=== PATIENT | female | born 1980 ===

== ENCOUNTER 2016-06-25 18:32 | Emergency (ER) | payer OTHER, MEDICAID ==
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
[2016-06-25 19:19] VITALS: BP 126/61; PULSE 98; RESP 16; TEMP 98.6; O2SAT 100; BMI 26.6
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
== END 2016-06-25 20:47 | disposition home or self-care (01) ==
LOC: H.ER 18:32
DX: R10.30 Lower abdominal pain, unspecified (principal); V43.52XA Car driver injured in collision with other type car in traffic accident, initial encounter; Y92.410 Unspecified street and highway as the place of occurrence of the external cause; Z3A.11 11 weeks gestation of pregnancy; M54.5 Low back pain; F31.9 Bipolar disorder, unspecified; F41.9 Anxiety disorder, unspecified

== ENCOUNTER 2016-07-23 07:57 | Emergency (ER) | payer MEDICAID, OTHER ==
--- NOTE | 2016-07-23 08:30 | ED PDOC ---
HPI: Abdomen Time Seen by Provider: 07/23/16 08:09 Chief Complaint (Nursing): Abdominal Pain Chief Complaint (Provider): Abdominal Pain History Per: Patient History/Exam Limitations: no limitations Onset/Duration Of Symptoms: Days (x2 days) Current Symptoms Are (Timing): Still Present Additional Complaint(s): 35 y/o female presents to the emergency department with a complaint of a left lower quadrant pain that radiates to the back since yesterday, 07/22/2016. Denies nausea, vomiting, diarrhea, dysuria, and vaginal bleeding. Patient is approximately 14 weeks with twins. Past Medical History Reviewed: Historical Data, Nursing Documentation, Vital Signs Vital Signs: Last Vital Signs Temp 98.5 F 07/23/16 08:05 Pulse 88 07/23/16 08:05 Resp 18 07/23/16 08:05 BP 122/58 L 07/23/16 08:05 Pulse Ox 100 07/23/16 08:33 - Medical History PMH: Anxiety, Arthritis, Bipolar Disorder, Depression Denies: Alzheimer's Disease, Diabetes, Hepatitis, HIV, HTN, Kidney Stones, Chronic Kidney Disease, Seizures, Sexually Transmitted Disease - Surgical History Surgical History: No Surg Hx - Family History Family History: States: Unknown Family Hx - Social History Current smoker - smoking cessation education provided: No Alcohol: None Drugs: Denies - Immunization History Hx Tetanus Toxoid Vaccination: Yes (9 yrs ago) Hx Influenza Vaccination: No Hx Pneumococcal Vaccination: No - Home Medications Home Medications: Ambulatory Orders Medication Instructions Recorded Loratadine [Claritin] 10 mg PO DAILY 06/25/16 - Allergies Allergies/Adverse Reactions: Allergies Allergy/AdvReac Type Severity Reaction Status Date / Time milk Allergy URTICARIA Verified 07/23/16 08:11 wheat Allergy DIARRHEA Verified 07/23/16 08:11 rice Allergy SWELLING Uncoded 02/18/16 14:05 Review of Systems ROS Statement: Except As Marked, All Systems Reviewed And Found Negative Gastrointestinal: Positive for: Abdominal Pain (Left lower quadrant). Negative for: Nausea, Vomiting, Diarrhea Genitourinary Female: Negative for: Dysuria, Vaginal Bleeding Musculoskeletal: Positive for: Back Pain Physical Exam - Reviewed Nursing Documentation Reviewed: Yes Vital Signs Reviewed: Yes - Physical Exam Appears: Positive for: Well, Non-toxic, No Acute Distress Head Exam: Positive for: ATRAUMATIC, NORMOCEPHALIC Skin: Positive for: Normal Color, Warm, Dry Cardiovascular/Chest: Positive for: Regular Rate, Rhythm. Negative for: Murmur Respiratory: Positive for: Normal Breath Sounds. Negative for: Accessory Muscle Use, Respiratory Distress Gastrointestinal/Abdominal: Positive for: Normal Exam, Soft. Negative for: Tenderness Back: Negative for: L CVA Tenderness, R CVA Tenderness Neurologic/Psych: Positive for: Alert, Oriented - Laboratory Results Result Diagrams: 07/23/16 09:00 07/23/16 09:00 - ECG O2 Sat by Pulse Oximetry: 100 (RA) Pulse Ox Interpretation: Normal Medical Decision Making Medical Decision Making: Time: 8:09 Initial impression: Abdominal Pain Initial plan: --Type and Screen Stat --Beta-HCG, Quantitative --COMP Metabolic Panel --CBC w/ differential --OB , Limited US --Revaluation Scribe Attestation: Documented by Meghan Chavez, acting as a scribe for Wesley Beck MD. Provider Scribe Attestation: All medical record entries made by the Scribe were at my direction and personally dictated by me. I have reviewed the chart and agree that the record accurately reflects my personal performance of the history, physical exam, medical decision making, and the department course for this patient. I have also personally directed, reviewed, and agree with the discharge instructions and disposition. Disposition - Clinical Impression Clinical Impression: Abdominal pain during - Patient ED Disposition Is Patient to be Admitted: No Counseled Patient/Family Regarding: Studies Performed, Diagnosis, Need For Followup - Disposition [facility]errals[facility] Disposition: Routine/Home Disposition Time: 10:21 Condition: FAIR Instructions: Abdominal Pain in (ED)
[2016-07-23 08:43] VITALS: TEMP 98.5; BMI 27.2
[2016-07-23 09:19] LABS: BASO % 0.2 % (0.0-2.0); EOS % 0.5 % (0.0-4.0); HEMATOCRIT 33.3 % (34.0-47.0); LYMPH # 1.4 K/uL (1.0-4.3); LYMPH % 22.6 % (20.0-40.0); MEAN CELL VOLUME 95.5 fl (81.0-99.0); MEAN CORPUSCULAR HEMOGLOBIN 31.8 pg (27.0-31.0); MEAN CORPUSCULAR HGB CONC 33.3 g/dL (33.0-37.0); MEAN PLATELET VOLUME 8.3 fl (7.2-11.7); MONO # 0.5 K/uL (0.0-0.8); MONO % 8.7 % (0.0-10.0); NEUT # 4.1 K/uL (1.8-7.0); NRBC % 0.1 % (0.0-0.0); RED CELL DISTRIBUTION WIDTH 13.2 % (11.5-14.5)
[2016-07-23 09:38] LABS: ALB/GLOB RATIO 1.2 (1.0-2.1); ALKALINE PHOSPHATASE 36 U/L (38-126); ALT/SGPT 22 U/L (9-52); AST/SGOT 20 U/L (14-36); BILIRUBIN,TOTAL 0.3 mg/dl (0.2-1.3); BLOOD UREA NITROGEN 9 mg/dl (7-17); CALCIUM 8.9 mg/dL (8.4-10.2); CARBON DIOXIDE 22 mmol/L (22-30); CHLORIDE 103 mmol/L (98-107); GFR AFRICAN-AMERICAN > 60; GLUCOSE,RANDOM 79 mg/dL (65-105); POTASSIUM 3.4 MMOL/L (3.6-5.0); SODIUM 134 mmol/l (132-148); TOTAL PROTEIN 6.5 G/DL (6.3-8.2)
--- NOTE | 2016-07-23 10:25 | US ---
OB , limited Technique: Both transabdominal and endovaginal imaging was performed. Comparison: Ob transvaginal ultrasound performed 06/25/16 Findings: This is a twin gestation. Fetus A: Fetus has a composite sonographic age of 15 weeks 2 days. This calculation is based on the biparietal diameter, head circumference, abdominal circumference, and femur length. Transverse presentation. There is heart motion which measured 138 BPM. Posterior placenta. Fetus B: Fetus has a composite sonographic age of 15 weeks 4 days. This calculation is based on the biparietal diameter, head circumference, abdominal circumference, and femur length. Breech presentation. There is heart motion which measured 151 BPM. Anterior placenta. The ovaries are not visualized. Cervix length measures approximately 3.9 cm. Impression: Fetus A: Fetus has a composite sonographic age of 15 weeks 2 days. There is heart motion which measured 138 BPM. Transverse presentation. Fetus B: Fetus has a composite sonographic age of 15 weeks 4 days. There is heart motion which measured 151 BPM. Breech presentation. Advise an anomaly screen at 16-18 weeks gestational age.
[2016-07-23 10:31] VITALS: BP 96/50; PULSE 74; RESP 16; O2SAT 99
== END 2016-07-23 10:35 | disposition home or self-care (01) ==
LOC: H.ER 07:57
DX: O26.899 Other specified pregnancy related conditions, unspecified trimester (principal); F31.9 Bipolar disorder, unspecified; F41.9 Anxiety disorder, unspecified

== ENCOUNTER 2016-10-05 07:47 | Emergency (ER) | payer MEDICAID, OTHER ==
[2016-10-05 08:41] VITALS: BMI 29.7
[2016-10-05] MEDS: Lactated Ringer's 1,000 ML IV SCH ×2 (08:45→09:45)
[2016-10-05 09:56] LABS: HEMATOCRIT 33.8 % (34.0-47.0); MEAN CELL VOLUME 97.2 fl (81.0-99.0); MEAN CORPUSCULAR HEMOGLOBIN 32.9 pg (27.0-31.0); MEAN CORPUSCULAR HGB CONC 33.8 g/dL (33.0-37.0); RED CELL DISTRIBUTION WIDTH 13.7 % (11.5-14.5); WHITE BLOOD COUNT 5.5 K/uL (4.8-10.8)
[2016-10-05 10:20] LABS: ALB/GLOB RATIO 1.2 (1.0-2.1); ALKALINE PHOSPHATASE 112 U/L (38-126); ALT/SGPT 36 U/L (9-52); AST/SGOT 36 U/L (14-36); BILIRUBIN,TOTAL 0.4 mg/dl (0.2-1.3); BLOOD UREA NITROGEN 8 mg/dl (7-17); CALCIUM 9.3 mg/dL (8.4-10.2); CARBON DIOXIDE 23 mmol/L (22-30); CHLORIDE 104 mmol/L (98-107); GFR AFRICAN-AMERICAN > 60; GLUCOSE,RANDOM 87 mg/dL (65-105); POTASSIUM 4.1 MMOL/L (3.6-5.0); SODIUM 135 mmol/l (132-148); TOTAL PROTEIN 6.9 G/DL (6.3-8.2)
[2016-10-05 10:38] LABS: RBC URINE 3 /hpf (0-3); URINE BACTERIA RARE (<OCC); URINE BILIRUBIN NEGATIVE (NEGATIVE); URINE BLOOD NEGATIVE (NEGATIVE); URINE COLOR YELLOW (YELLOW); URINE GLUCOSE (UA) NEG (Normal); URINE KETONE 20 mg/dL (NEGATIVE); URINE LEUKOCYTE ESTERASE NEG Leu/uL (Negative); URINE PROTEIN NEGATIVE (NEGATIVE); URINE UROBILINOGEN 0.2-1.0 mg/dL (0.2-1.0); WBC URINE 2 /hpf (0-5)
[2016-10-05 10:50] LABS: THYROID STIMULATING HORMONE 0.84 mIU/ML (0.46-4.68)
[2016-10-06 20:10] VITALS: BP 125/83; PULSE 95; TEMP 98; O2SAT 100
--- NOTE | 2016-11-09 12:25 | OBHP ---
Datetime: 10/05/2016 09:23 IP Adm Impression: , intrauterine IP Admit Plan: Observation/Evaluation; Discharge home Admit Comment, IP Provider: 35 y/o at 25.3wks of twin gestation, presenting with complaints of nausea and vomiting 3x this morning, states she is no longer nauseous. Reports prior to getting pregn ant she was told her thyroid level was low but was not started on any medication, but when she got pr egnant she was told its normal. No other complaints otherwise. denies any vaginal bleeding, loss of f luid, admits to movement. Pmhx: Possible hypothyroidism? pregenancy- had a false positive down syndrome testing in this , other than that, no othe r complications Allergies: gluten, milk A/P 35 y/o at 25.3wks twin with nausea and vomiting monitor cbc, cmp, UA, TSH lactated ringers for hydration pt declined zofran states nausea has improved continue to monitor anticipate discharge Talia PGY 3 Addendum: I saw examined patient up presentation and at follow-up. Patient observed at OB ED for multiple ho urs. Patient tolerating food and denies any nausea or vomiting while at OB ED. All labs checked withi n normal limits. Both maternal well-being and both well-being reassuring at this time. Patient discharged to home and will follow-up with care as already scheduled. [place] Pelvic Type - PN: Adequate Extremities - PN: Normal Abdomen - PN: Normal Back - PN: Normal Breast - PN: Not Done Lungs - PN: Normal Heart - PN: Normal Thyroid - PN: Normal Neurologic - PN: Normal HEENT - PN: Normal General - PN: Normal Gestation - Est Wks by US: 25.3 EGA AdmitDate IP: 25.3 Vital Signs Provider: Reviewed; Within Normal Limits IP Chief Complaint: Illness Genitourinary Exam: Normal DTRs - PN: Normal
== END 2016-10-05 10:30 | disposition home or self-care (01) ==
LOC: H.EROB2 07:47
DX: O30.002 Twin pregnancy, unspecified number of placenta and unspecified number of amniotic sacs, second trimester (principal); Z3A.25 25 weeks gestation of pregnancy; O21.0 Mild hyperemesis gravidarum

== ENCOUNTER 2016-10-06 07:57 | Emergency (ER) | payer MEDICAID ==
[2016-10-06 09:58] VITALS: BMI 30.8
[2016-10-06] MEDS ORDERED: Lactated Ringer's 1,000 ML IV ONE (10:00)
[2016-10-06 10:44] LABS: HEMATOCRIT 32.1 % (34.0-47.0); MEAN CELL VOLUME 97.6 fl (81.0-99.0); MEAN CORPUSCULAR HEMOGLOBIN 33.4 pg (27.0-31.0); MEAN CORPUSCULAR HGB CONC 34.2 g/dL (33.0-37.0); RED CELL DISTRIBUTION WIDTH 13.3 % (11.5-14.5); WHITE BLOOD COUNT 6.3 K/uL (4.8-10.8)
[2016-10-06 11:12] LABS: ALB/GLOB RATIO 1.2 (1.0-2.1); ALKALINE PHOSPHATASE 105 U/L (38-126); ALT/SGPT 43 U/L (9-52); AST/SGOT 28 U/L (14-36); BILIRUBIN,TOTAL 0.4 mg/dl (0.2-1.3); BLOOD UREA NITROGEN 5 mg/dl (7-17); CARBON DIOXIDE 24 mmol/L (22-30); CHLORIDE 103 mmol/L (98-107); GFR AFRICAN-AMERICAN > 60; GLUCOSE,RANDOM 75 mg/dL (65-105); POTASSIUM 4.2 MMOL/L (3.6-5.0); SODIUM 134 mmol/l (132-148); TOTAL PROTEIN 6.5 G/DL (6.3-8.2)
== END 2016-10-06 13:45 | disposition home or self-care (01) ==
LOC: H.EROB2 07:57
DX: O30.002 Twin pregnancy, unspecified number of placenta and unspecified number of amniotic sacs, second trimester (principal); O21.0 Mild hyperemesis gravidarum; Z3A.25 25 weeks gestation of pregnancy
CPT/HCPCS: 80053; 85027; 99283; J7120

== ENCOUNTER 2016-10-09 14:37 | Emergency (ER) | payer MEDICAID ==
[2016-10-09 14:40] VITALS: BMI 30.8
[2016-10-09 14:44] VITALS: BP 129/73; PULSE 101; RESP 16; TEMP 98.5; O2SAT 100
--- NOTE | 2016-10-09 15:01 | ED PDOC ---
HPI: CCC, URI, Sore Throat Time Seen by Provider: 10/09/16 14:45 Chief Complaint (Nursing): Cough, Cold, Congestion Chief Complaint (Provider): Cough, Cold, Congestion History Per: Patient History/Exam Limitations: no limitations Onset/Duration Of Symptoms: Days (x1) Additional Complaint(s): Marleen Diallo is a 35 year old female who is 25 weeks presenting to the ED for nasal congestion associated with cough and a subjective fever beginning yesterday. Patient states cough is productive of brown and green sputum. She denies abdominal pain, or bleeding, no recent travel or known sick contacts. PMD: None Provided Past Medical History Reviewed: Historical Data, Nursing Documentation, Vital Signs Vital Signs: Last Vital Signs Temp 98.5 F 10/09/16 14:41 Pulse 101 H 10/09/16 14:41 Resp 16 10/09/16 14:41 BP 129/73 10/09/16 14:41 Pulse Ox 100 10/09/16 15:03 - Medical History PMH: Anxiety, Arthritis, Bipolar Disorder, Depression, Hypothyroidism Other PMH: - had 2 elective abortions - Surgical History Surgical History: No Surg Hx - Family History Family History: States: No Known Family Hx - Living Arrangements Living Arrangements: With Family - Social History Current smoker - smoking cessation education provided: No Alcohol: None Drugs: Denies - Home Medications Home Medications: Ambulatory Orders Medication Instructions Recorded Loratadine [Claritin] 10 mg PO DAILY 06/25/16 Azithromycin [Zithromax] 250 mg PO DAILY #6 tab 10/09/16 - Allergies Allergies/Adverse Reactions: Allergies Allergy/AdvReac Type Severity Reaction Status Date / Time milk Allergy URTICARIA Verified 07/23/16 08:11 wheat Allergy DIARRHEA Verified 07/23/16 08:11 rice Allergy SWELLING Uncoded 02/18/16 14:05 Review of Systems ROS Statement: Except As Marked, All Systems Reviewed And Found Negative Constitutional: Positive for: Fever (subjective, tactile, not measured) ENT: Positive for: Nose Congestion Respiratory: Positive for: Cough, Sputum (green, brown) Gastrointestinal: Negative for: Abdominal Pain Genitourinary Female: Negative for: Vaginal Bleeding Neurological: Negative for: Headache, Dizziness Physical Exam - Reviewed Nursing Documentation Reviewed: Yes Vital Signs Reviewed: Yes - Physical Exam Appears: Positive for: Well, Non-toxic, No Acute Distress Head Exam: Positive for: ATRAUMATIC, NORMAL INSPECTION, NORMOCEPHALIC ENT: Positive for: Nasal Congestion. Negative for: Pharyngeal Erythema Cardiovascular/Chest: Positive for: Regular Rate, Rhythm Respiratory: Positive for: Normal Breath Sounds. Negative for: Respiratory Distress Gastrointestinal/Abdominal: Positive for: Other (gravid, nontender abdomen) Extremity: Positive for: Normal ROM Neurologic/Psych: Positive for: Alert, Oriented - ECG O2 Sat by Pulse Oximetry: 100 (RA) Pulse Ox Interpretation: Normal Medical Decision Making Medical Decision Making: Time: 14:45 Impression: URI Plan: Rx Z-pack. Patient was instructed to take Benadryl, Tylenol, and Robitussin as needed and to follow up at the [facility] clinic. Scribe Attestation: Documented by Chen Ames, acting as a scribe for Florence Georges PA-C. Provider Scribe Attestation: All medical record entries made by the Scribe were at my direction and personally dictated by me. I have reviewed the chart and agree that the record accurately reflects my personal performance of the history, physical exam, medical decision making, and the department course for this patient. I have also personally directed, reviewed, and agree with the discharge instructions and disposition. Disposition - Clinical Impression Clinical Impression: Upper respiratory infection - Patient ED Disposition Is Patient to be Admitted: No Counseled Patient/Family Regarding: Diagnosis, Need For Followup, Rx Given - Disposition Referrals: [facility] [Outside] Disposition: Routine/Home Disposition Time: 15:05 Condition: STABLE Additional Instructions: Take rx meds as directed. Take over the counter tylenol as needed for fever/ body aches. Take over the counter benadryl for congestion. Take over the counter robitussin without added decongestant for cough. Rest and drink plenty of fluids. Follow up with primary care doctor or clinic on 2-3 days. Prescriptions: Azithromycin [Zithromax] 250 mg PO DAILY #6 tab Instructions: Upper Respiratory Infection (ED) Forms: [facility] (Serbian)
== END 2016-10-09 15:31 | disposition home or self-care (01) ==
LOC: H.ER 14:37
DX: J06.9 Acute upper respiratory infection, unspecified (principal); E03.9 Hypothyroidism, unspecified; F31.9 Bipolar disorder, unspecified; F41.9 Anxiety disorder, unspecified; O99.282 Endocrine, nutritional and metabolic diseases complicating pregnancy, second trimester; Z3A.25 25 weeks gestation of pregnancy